=== PATIENT | male | born 1960 | race Caucasian/White ===

== ENCOUNTER 2020-06-07 12:00 | Day surgery (SDC) | payer MEDICAID, SELFPAY ==
[~2020-06-07] VITALS: Ht 182.9 cm; Wt 90.9 kg
[~2020-06-07 12:00] MED LIST: PERCOCET 5MG/325MG TAB PO SCH
[2020-06-07] MEDS ORDERED: ceFAZolin SOD 2 GM in IV 1 EA IV ONE (12:15)
[2020-06-07] MEDS ORDERED: ONDANSETRON 4MG/2ML VIAL IV ONE (12:30)
[2020-06-07] MEDS ORDERED: MORPHINE 4 MG/ML 1ML VIAL/SYRINGE (J2270) IV ONE ×5 (12:30→20:15)
[2020-06-07] MEDS ORDERED: NS 1,000 ML IV ONE (12:30)
[2020-06-07 12:33] LABS: HEMATOCRIT 47.7 % (42.0-52.0); HEMOGLOBIN 15.5 g/dl (13.5-17.5); MEAN CORPUSCULAR HEMOGLOBIN 31.2 pg (27.0-33.0); MEAN CORPUSCULAR HGB CONC 32.5 g/dl (32.0-36.5); PLATELET COUNT, AUTOMATED 270 10^3/uL (150-450); RED BLOOD COUNT 4.97 10^6/uL (4.30-6.10); WHITE BLOOD COUNT 10.2 10^3/uL (4.0-10.0)
[2020-06-07 12:46] LABS: INR 0.94; PROTHROMBIN TIME 12.7 SECONDS (12.5-14.3)
--- NOTE | 2020-06-07 12:51 | REP ---
INDICATION: table saw injury COMPARISON: None. TECHNIQUE: Four views right hand. FINDINGS: There is a comminuted fracture at the distal end of the 2nd proximal phalanx. There is a comminuted fracture at the base of the 2nd middle phalanx. There is associated soft tissue disruption at that location of the 2nd digit. Multiple subcentimeter osseous fragments are seen in these soft tissues. Second distal phalanx appears intact. I see no other evidence of fracture or dislocation. Mild diffuse arthritic changes are seen at multiple joints including mild spurring, joint space narrowing and subchondral cystic changes. IMPRESSION: Comminuted fractures of the distal aspect of 2nd proximal phalanx and base of 2nd middle phalanx. There is soft tissue disruption at that location with multiple small osseous fragments in the soft tissues. <Electronically signed by Shane Reeves > 06/07/20 [id number]
[2020-06-07 13:27] LABS: RSV AMPLIFICATION NEGATIVE (NEGATIVE)
[2020-06-07 14:04] LABS: BLOOD UREA NITROGEN 14 MG/DL (7-18); CALCIUM LEVEL 9.5 MG/DL (8.8-10.2); CARBON DIOXIDE LEVEL 26 mmol/L (20-29); CHLORIDE LEVEL 107 MEQ/L (98-107); CREATININE FOR GFR 0.94 MG/DL (0.70-1.30); GLOMERULAR FILTRATION RATE > 60.0 (>49); GLUCOSE, FASTING 117 MG/DL (70-100); POTASSIUM SERUM 4.5 MEQ/L (3.5-5.1); SODIUM LEVEL 139 MEQ/L (136-145)
--- NOTE | 2020-06-07 17:24 | ECGEPIP ---
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
[2020-06-07] MEDS ORDERED: NS 1,000 ML IV SCH (19:36)
[2020-06-07] MEDS ORDERED: ACETAMINOPHEN TAB 650MG DOSE (2X325MG) PO PRN ×2 (19:45→22:45)
[2020-06-07] MEDS ORDERED: ceFAZolin SOD 2 GM in D5W MINI-BAG PLUS 50 ML IV SCH (19:45)
[2020-06-07] MEDS ORDERED: NORCO, ANEXSIA 5/325MG TABLET (HYDROcodone/ACETAMINOPHEN) PO PRN ×2 (19:45)
[2020-06-07] MEDS ORDERED: KETOROLAC 30 MG/ML 1ML VIAL IV PRN (19:45)
[2020-06-07] MEDS ORDERED: ONDANSETRON 4MG/2ML VIAL IV PRN ×3 (19:45→22:45)
--- OUTSIDE RECORDS SUMMARY | 2020-06-07 19:53 | CCD ---
Author Author [facility] Organization [facility] Address Unknown Phone Unavailable Support Name Relationship Address Phone DIAMONDAMANDAAN Next Of Kin [address] [place] [address] BRIT BAXTER Next Of Kin [address] [place] [address] [place] Next Of Kin Unknown Unavailable [facility] [place] [address] SELF [employer]OYED [place] [address] Chris SAMUELS Next Of Kin [address] [place] [address] Lamine Baxter E[address] [place] [address] Re-disclosure Warning The records that you are about to access may contain information from federally-assisted alcohol or drug abuse programs. If such information is present, then the following federally mandated warning applies: This information has been disclosed to you from records protected by federal confidentiality rules (42 CFR part 2). The federal rules prohibit you from making any further disclosure of this information unless further disclosure is expressly permitted by the written consent of the person to whom it pertains or as otherwise permitted by 42 CFR part 2. A general authorization for the release of medical or other information is NOT sufficient for this purpose. The Federal rules restrict any use of the information to criminally investigate or prosecute any alcohol or drug abuse patient.The records that you are about to access may contain highly sensitive health information, the redisclosure of which is protected by Article 27-F of the [facility] Public Health law. If you continue you may have access to information: Regarding HIV / AIDS; Provided by facilities licensed or operated by the [facility] Office of Mental Health; or Provided by the [facility] Office for People With Developmental Disabilities. If such information is present, then the following [facility] mandated warning applies: This information has been disclosed to you from confidential records which are protected by state law. State law prohibits you from making any further disclosure of this information without the specific written consent of the person to whom it pertains, or as otherwise permitted by law. Any unauthorized further disclosure in violation of state law may result in a fine or care home sentence or both. A general authorization for the release of medical or other information is NOT sufficient authorization for further disc losure. Insurance Providers Payer name Policy type / Coverage type Policy ID Covered green party ID Covered green party's relationship to fragoso Policy Fragoso Plan Information SELF PAY ONLY [id number] SP [id number] [id number] SP [id number] SELF PAY SP BC[employer] of [facility] Other 302/802 Self 302/802 BLUE CROSS [id number] SP [id number] BC[employer] of [facility] Other 302/802 Self 302/802 BCBS of [facility] Other 302/802 Self 302/802 BCBS of [facility] Other 302/802 Self 302/802 ID IDENTIFICATION [id number] Other In [place] [id number] [employer] [id number] Blue [employer]/Shield [id number] ID IDENTIFICATION [id number] [id number] [employer] [id number] SP [id number] Americice [facility] [id number] SP [id number]
[2020-06-07] MEDS ORDERED: MIDAZOLAM INJ 2MG/2ML VIAL (J2250 PER 1MG) As Ordered ONE ×2 (20:29→21:05)
[2020-06-07] MEDS ORDERED: fentaNYL 100 MCG/2 ML INJECTION (J3010) As Ordered ONE (20:29)
[2020-06-07] MEDS ORDERED: propofoL 200 MG/20 ML VIAL As Ordered ONE ×3 (20:30→21:46)
[2020-06-07] MEDS ORDERED: ONDANSETRON 4MG/2ML VIAL As Ordered ONE (20:30)
[2020-06-07] MEDS ORDERED: LIDOCAINE 2% 100MG/5ML SDV (FOR ANES.) As Ordered ONE (20:30)
[2020-06-07] MEDS ORDERED: dexameTHASONE 4 MG/ML 1ML VIAL (J1100 PER 1MG) As Ordered ONE (20:30)
[2020-06-07] MEDS ORDERED: ceFAZolin SOD 2 GM in IV 1 EA IV SCH (21:00)
[2020-06-07] MEDS ORDERED: ALBUTEROL 6.7GM INHALER **FOR ANES. CART/OMNICELL ONLY As Ordered ONE (21:04)
[2020-06-07] MEDS ORDERED: ceFAZolin 1GM VIAL (J0690 PER 500MG) As Ordered ONE (21:05)
[2020-06-07] MEDS ORDERED: BUPIVACAINE/EPIN 0.25% 30 ML VIAL As Ordered ONE (21:05)
[2020-06-07] MEDS ORDERED: ceFAZolin 2 GM/D5W 50 ML IV BAG (J0690 PER 500MG) As Ordered ONE (21:07)
--- NOTE | 2020-06-07 21:08 | CR ---
CONSULTATION DATE: 06/07/2020 CHIEF COMPLAINT: Right index finger partial amputation and open fracture and laceration of the tip of the thump and radial side of middle digit. HISTORY OF PRESENT ILLNESS: This 59-year-old man was seen today at [facility] Emergency Department. He had an injury this morning. He was using a table saw, cutting 2 x 4's to convert a barn into a house. 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 He is right hand dominant. He put his hand in the table saw. It was partially amputated through the PIP, his right index finger and sustained a laceration to the tip of his thumb as well as on the radial side of his middle finger. He has been n.p.o. since 9:00 a.m. this morning. I was called to assess this man at around noon and saw him at around 4:00 p.m. I asked the QMP to administer I.V. antibiotics as well as tetanus up-to-date booster and cover the wound in warm gauze. The patient has no previous pain, problems or injuries to that upper extremity. PAST MEDICAL HISTORY: Nil. MEDICATIONS: None. ALLERGIES: No known drug allergies. 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 He smokes one package of cigarettes a day. He lives in [place], [place], about 20 miles away. PHYSICAL EXAMINATION: This well appearing 59-year-old man. Vital signs are stable. Appears well. Gauze is removed from his hand. There is partial amputation mostly on the dorsum with a long oblique laceration with jagged edges at the PIP joint of the right index finger. There is an obvious open injury. There is exposed bone. He does have normal cap refill at the distal aspect of the finger, but there is only a small soft tissue bridge volarly with obvious laceration through the joint with comminution at the distal aspect of the proximal phalanx as well as complete disruption of the extensor tendon. He also has a small superficial tip abrasion about 3 mm long at the tip of the thumb. There is also another small approximately 2.5 cm laceration at the radial side of the middle finger at the PIP joint. This has not gone deep, it appears relatively superficial. There is normal sensation, motor function of that digit with full range of motion of PIP and DIP joints. Normal sensation to the tip of the digit. RADIOGRAPHS: Radiographs were reviewed of the right hand. This shows obvious open fracture through the PIP joint of the right index finger. There is comminution at the distal aspect of the proximal phalanx through the condyles. There are no obvious other fractures. There is also comminution of the base of the middle phalanx at the index digit. ASSESSMENT AND PLAN: This 59-year-old man has an open fracture with comminution through the joint of the PIP of the right index finger. He also has other lacerations of the middle finger and thumb. In terms of the most severe injury, which would be to the PIP joint of the right index finger, we discussed the pros and cons, risks and benefits of revision amputation with irrigation, debridement and shortening of the digit proximal to the PIP joint versus transportation to a [facility] for hand surgeon immediate referral considering pinning the joint and reconstruction and repair of the extensor mechanism. He would like to go ahead with revision amputation and shortening of the digit with irrigation and debridement. I will keep him n.p.o. in preparation for doing the case tonight and continue on with I.V. antibiotics. I have placed white gauze over the top of the injuries. The pros and cons, risks and benefits of surgery were discussed and include but are not limited to infection, pain, stiffness, weakness, damage to surrounding structures, higher than normal risk of wound complications given his pack a day smoking as well as anesthetic complications, blood clots, , need for further surgery, soft tissue complications and other risks not listed. He will go ahead and sign the consent form for surgery. We will keep him n.p.o. in preparation for surgery. He is COVID negative and I have let the Operating Room know about the case.
[2020-06-07] MEDS ORDERED: ACETAMINOPHEN 1000MG 100ML IV BTL (OFIRMEV) (J0131 PER 10MG) As Ordered ONE (21:23)
[2020-06-07] MEDS ORDERED: MORPHINE 2 MG/ML 1ML VIAL (J2270) IV PRN (22:45)
[2020-06-07] MEDS ORDERED: LR 1,000 ML IV SCH ×2 (22:45)
[2020-06-07] MEDS ORDERED: PERCOCET 5MG/325MG TAB PO PRN ×2 (22:45)
[2020-06-07] MEDS ORDERED: METOCLOPRAMIDE INJ 10MG/2ML VIAL (J2765 PER 1) IV PRN (22:45)
[2020-06-07] MEDS ORDERED: fentaNYL 100 MCG/2 ML INJECTION (J3010) IV PRN (22:45)
[2020-06-07 22:50] VITALS: BP 157/91
--- NOTE | 2020-06-08 09:38 | RO ---
OPERATIVE NOTE DATE OF OPERATION: 06/07/2020 PREOPERATIVE DIAGNOSES: 1. Right proximal interphalangeal (PIP) index finger partial amputation and open fracture. 2. Laceration proximal interphalangeal (PIP) joint middle finger, 5 cm long on the radial side. 3. Superficial abrasion of the thumb at the tip. POSTOPERATIVE DIAGNOSES: 1. Right proximal interphalangeal (PIP) index finger partial amputation and open fracture. 2. Laceration proximal interphalangeal (PIP) joint middle finger, 5 cm long on the radial side. 3. Superficial abrasion of the thumb at the tip. PLANNED PROCEDURES: Right hand revision (cut out) lacerations. PROCEDURE PERFORMED: Right hand revision (cut out) lacerations. OPERATIVE PREAMBLE: This 59-year-old male was caught in a table saw. He had a partial amputation through the PIP joint with comminution of the joint and accessory tendon laceration. We discussed the pros, cons, risks, and benefits of immediate transfer for hand surgery, consideration of reconstructions versus shortening revision amputation and irrigation and debridement. He wished to go ahead with the later. I marked the right upper extremity and proceeded with surgery. OPERATIVE REPORT: The patient was brought to the operating room theater and administered MAC/local anesthetic. The limb was prepped and draped in the usual sterile fashion. We used iodine-based prep solution and allowed this to thoroughly dry prior to draping. The patient was placed supine on the operating room table. An arm table was used on the patient's right side. Tourniquet was applied but not inflated. All bony prominences were padded. SCDs were used on the legs. Preoperative timeout was performed to confirm the site of the patient's surgery. I began by assessing the wounds. I thoroughly irrigated all of the wounds using 3 liters of normal saline with 2 grams IV Ancef solution. Preoperative antibiotics were 2 grams of IV Ancef as well prior to the start of the case. I repaired the laceration on the radial side of the PIP joint of the middle finger using 3-0 Vicryl and 3-0 Ethibond in an interrupted fashion. I then debrided and washed out the skin at the tip of the thumb. This was a small superficial abrasion for a length of approximately 1 cm. Next, I turned my attention to the index finger. This was a [id number] laceration. The only thing remaining was the flexor tendon on the volar side and a small skin bridge of about 2 cm on the volar side. I completed the transarticular amputation. I cauterized the vessels and the nerves were cut short. They were buried in soft tissue. I then debulked the wound and then took a volar flap dorsally. I repaired this flap with interrupted 3-0 Vicryl suture and 3-0 Ethibond sutures in standard interrupted fashion. I cleaned the wound with wet and dry dressing. Local anesthetic was 0.25% Marcaine with 1:100,000 epinephrine administered in a block fashion, 1 mL on either side of the fingers, as well as 0.5 mL to 1 mL around the incision site as he was responding at the start of case to pain. The skin was cleaned with wet and dry dressing followed by application of Adaptic and Kelle dressing. The patient was woken up from the local/MAC anesthetic, transferred off of the operating room table, and taken to the postanesthetic care unit in stable condition. All sponge counts, needle counts, and instrument counts were correct. No complications. Estimated blood loss 10 mL. PLAN: 1. Change dressing every day. 2. He is to be discharged to home after meeting day surgery criteria. 3. Follow up in the office in two weeks' time to discontinue the sutures. 4. Prescriptions will be Percocet 5/325 mg tablets for pain control, as well as p.o. Keflex 500 mg p.o. four times daily for five days for surgical wound prophylaxis.
== END 2020-06-07 23:00 | disposition home or self-care (01) ==
LOC: M ED 12:00 → M SDC 12:00 → M ED 19:36
PROVIDERS: ATTEND Orthopaedic Surgery Sports Medicine
DX: S68.620A Partial traumatic transphalangeal amputation of right index finger, initial encounter (principal); S63.40 Traumatic rupture of unspecified ligament of finger at metacarpophalangeal and interphalangeal joint; S61.212A Laceration without foreign body of right middle finger without damage to nail, initial encounter; W31.2XXA Contact with powered woodworking and forming machines, initial encounter; Y92.61 Building [any] under construction as the place of occurrence of the external cause; Y99.0 Civilian activity done for income or pay; K21.9 Gastro-esophageal reflux disease without esophagitis; F17.218 Nicotine dependence, cigarettes, with other nicotine-induced disorders; Y93.H3 Activity, building and construction
CPT/HCPCS: 12001; 26952; 36415; 73130; 80048; 85027; 85610; 86850; 86900; 86901; 87631; 88302; 93005; 96361; 96365; 96375; 96376; 99285; J0131; J0690; J1100; J2250; J2270; J2405; J3010